=== PATIENT | female | born 1980 | race Caucasian/White ===

== ENCOUNTER 2019-12-07 18:44 | Emergency (ER) | payer OTHER, SELFPAY ==
--- NOTE | 2019-12-07 19:02 | ED.ABDPAIN ---
HPI - Abdominal Pain General Chief Complaint: Abdominal Pain Stated Complaint: trouble having a bowel movement Time Seen by Provider: 12/07/19 19:02 Source: patient and RN notes reviewed Mode of arrival: ambulatory Limitations: no limitations History of Present Illness HPI narrative: Nurse reports that she went in to talk to the patient. Patient has been on methadone and reports constipation. When she was told the doctor would have to check her and examine her she decided that she would try enemas [id number] and left without me seeing her or speaking with her. I was not able to get any review of systems or past medical history other than what was reported by the nurse. MD elicited complaint: other (Constipation) Pertinent past history: constipation Related Data Allergies Allergy/AdvReac Type Severity Reaction Status Date / Time aspirin Allergy Intermediate hives Verified 01/29/13 17:45 ibuprofen Allergy Intermediate dyspnea Verified 01/29/13 17:45 Penicillins Allergy Intermediate angioedema Verified 01/29/13 17:44 lactose Allergy Unknown INTOL. Verified 11/15/15 22:39 [facility] Past Medical History Medical History (Updated 12/07/19 @ 19:21 by Jason Willis MD) Nasal bone fracture No significant past medical history Surgical History Surgical History (Updated 08/13/19 @ 18:36 by Saurabh Zavala MD) History of dilatation and curettage Family History Family History (Updated 08/13/19 @ 18:36 by Saurabh Zavala MD) Father No problems noted. Social History Social History (Updated 08/13/19 @ 18:37 by Saurabh Zavala MD) Additional smoking assessment comments: smokes 1 pack per day for past 15 years Substance use: never Discharge Plan Discharge Clinical Impression: Constipation Qualifiers: Constipation type: drug induced constipation Qualified Code(s): K59.03 - Drug induced constipation Patient Disposition: Left Without Being Seen Prescriptions: No Action azithromycin 250 mg tablet 250 mg PO DAILY 5 Days Qty: 5 RF: 0 Follow-up/Referrals: UNKNOWN,DOCTOR [Primary Care Provider] - Time of Disposition: :
[2019-12-07 19:25] VITALS: BP 153/83; PULSE 95; RESP 18; TEMP 37.1; O2SAT 96
== END 2019-12-07 19:30 | disposition left against medical advice (07) ==
PROVIDERS: Emergency Provider Emergency Medicine
DX: Z53.8 Procedure and treatment not carried out for other reasons (principal)
CPT/HCPCS: 99199

== ENCOUNTER 2020-02-07 19:14 | Emergency (ER) | payer OTHER, SELFPAY ==
[2020-02-07 19:14] VITALS: BP 140/76; PULSE 95; RESP 14; TEMP 36.9; O2SAT 97
--- NOTE | 2020-02-07 19:40 | ED.WOUNDLAC ---
HPI - Wound/Laceration General Chief Complaint: Wound/Laceration Stated Complaint: foot pain Source: patient Mode of arrival: ambulatory Limitations: no limitations History of Present Illness HPI narrative: this is a 39-year-old female that presents with some superficial abrasions to her left foot and to her 2nd distal toe after she bumped into a glass door causing abrasions, patient has good range of motion although it is mildly tender and painful has good pedal pulse, with some mild bruising and will abrasions to her left foot. Onset (ago): hour(s) Extremity Location: Left: ankle ( superficial abrasions) Place: outdoors Patient tetanus UTD: No Context: accidental Associated symptoms: none Treatments prior to arrival: bandage Related Data Home Medications Medication Instructions Recorded Confirmed albuterol sulfate 1 inh INHALATION QID PRN 12/07/19 12/07/19 methadone 10 mg PO DAILY 12/07/19 12/07/19 Allergies Allergy/AdvReac Type Severity Reaction Status Date / Time aspirin Allergy Intermediate hives Verified 01/29/13 17:45 ibuprofen Allergy Intermediate dyspnea Verified 01/29/13 17:45 Penicillins Allergy Intermediate angioedema Verified 01/29/13 17:44 lactose Allergy Unknown INTOL. Verified 11/15/15 22:39 Review of Systems Review of Systems: All systems reviewed & are unremarkable except as noted in HPI and below PMFSH Past Medical History Medical History Nasal bone fracture No significant past medical history Surgical History Surgical History History of dilatation and curettage Family History Family History Father No problems noted. Social History Social History Additional smoking assessment comments: smokes 1 pack per day for past 15 years Substance use: never Exam Const: General: no acute distress Orientation/consciousness: patient oriented x3 HENMT: Head: normal to inspection Eyes: Conjunctivae: conjunctivae normal Pupils: Equal, round and reactive pupils present Neck: Neck: normal visual inspection, no lymphadenopathy and no meningeal signs Chest: Chest palpation & inspection: normal inspection of the chest Resp: Effort & Inspection: normal respiratory effort Auscultation: clear to auscultation bilaterally Cardio: Rate: regular rate Rhythm: regular rhythm GI: GI Palp: Yes Soft to palpation Back/Spine/Pelvis: Back: no CVA tenderness Neuro: General: patient oriented x3 and moves all extremities Extrem: Other: Abrasions to her left foot and to the distal end of her 2nd toe on the left foot Course Course Emergency Course: when to assess patient and patient declined a type of x-rays stating that she has had broken bones before and she sure that there is no broken bones, she has superficial abrasions the foot is some soaking, placed Neosporin and update the patient with her tetanus vaccine. Critical Care Time Critical Care Time Critical Care Time: No Discharge Plan Discharge Clinical Impression: Avulsion of skin, Abrasion Patient Disposition: Home, Self-Care Condition: Stable Instructions: Antibiotic Form, Skin Avulsion (ED), Abrasion (ED), Laceration (ED) Additional Instructions: Follow-up with primary care physician if symptoms persist or worsen. Can apply Neosporin daily x3 days to affected areas. Prescriptions: No Action methadone 10 mg Tablet 10 mg PO DAILY RF: 0 albuterol sulfate 90 mcg/actuation Hfa Aerosol Inhaler 1 inh INHALATION QID PRN (Reason: Wheezing) RF: 0 Follow-up/Referrals: UNKNOWN,DOCTOR [Primary Care Provider] - Time of Disposition: 19:47
[2020-02-07] MEDS: TETANUS,DIPHTHERIA,AC PERTUSSIS ADULT 0.5 ML (ADACEL) IM (19:42)
[2020-02-07] MEDS: NEOMYCIN/POLYMYXIN/BACITRACIN OINTMENT PACKET 1 PACKET (19:43)
[2020-02-07 19:50] VITALS: RESP 15
== END 2020-02-07 19:51 | disposition home or self-care (01) ==
PROVIDERS: Emergency Provider Emergency Medicine
DX: S91.302A Unspecified open wound, left foot, initial encounter (principal); W22.8XXA Striking against or struck by other objects, initial encounter
CPT/HCPCS: 90471; 90715; 99282

== ENCOUNTER 2021-07-14 11:04 | Outpatient (CLI) | payer OTHER, SELFPAY ==
[2021-07-14 17:36] LABS: SARS-CoV-2 Ag Negative (Negative)
== END 2021-07-14 11:05 | disposition home or self-care (01) ==
PROVIDERS: PCP Family Medicine; Visit Provider Family Medicine
DX: Z20.822 Contact with and (suspected) exposure to COVID-19 (principal)
CPT/HCPCS: 87426; C9803

== ENCOUNTER 2022-05-18 09:47 | Outpatient (CLI) | payer OTHER, SELFPAY ==
--- NOTE | 2022-05-18 11:30 | NEURO_ITS ---
Impression: # Complains of numbness of hands, right more than left. # Moderate right Carpal Tunnel Syndrome. # No ulnar neuropathy. # Needle/EMG exam mildly abnormal. Motor Nerve Conduction Upper Extremities Median Nerve Conduction Velocity (m/sec) Terminal Latency (msec) Response Voltage(mV) Elbow-Wrist Wrist Elbow Wrist Right 58 5.3 5 5 Left 61 3.4 2 4 Ulnar Nerve Conduction Velocity (m/sec) Terminal Latency (msec) Response Voltage(mV) Above Elbow Below Elbow Wrist Above Elbow Below Elbow Wrist Right 60 2.2 9 9 Left 61 2.0 9 10 F-Wave Latency Median (ms) Ulnar (ms) Right 27.7 26.3 Left 26.7 26.0 Sensory Nerve Conduction Upper Extremities Median Nerve Stimulation Terminal Latency (msec) Wrist/Digit Response Voltage (uV) Wrist Right 5.8/4.7 63/69 Left 3.2/3.3 90/69 Ulnar Nerve Stimulation Terminal Latency (msec) Wrist/Digit Response Voltage (uV) Wrist Right 2.4 61 Left 2.3 80 Radial Nerve Terminal Latency (msec) Response Voltage(mV) Right 1.8 47 Left 1.7 25 Left Right Muscles Examined Fibrillation Fasciculation Scarcity Voltage Duration Left Right Left Right Left Right Left Right Left Right Deltoid Biceps X X Brachioradialis Triceps X X Pronator Teres X X Ext Indicis X X Ext Digitorum X X Abd Poll Brev +++ X X 1st Dorsal Interosseus Paraspinals MTDD
== END 2022-05-18 09:48 | disposition home or self-care (01) ==
LOC: ANHNEURO 09:49
PROVIDERS: PCP Family Medicine; Visit Provider Family Medicine
DX: R20.2 Paresthesia of skin (principal); G56.01 Carpal tunnel syndrome, right upper limb
CPT/HCPCS: 95886; 95911

== ENCOUNTER 2022-09-26 16:41 | Emergency (ER) | payer OTHER, SELFPAY ==
[2022-09-26 16:41] VITALS: BP 132/83; PULSE 95; RESP 18; TEMP 36.4; O2SAT 99
--- NOTE | 2022-09-26 17:17 | ED.GENADULT ---
HPI - General Adult General Chief complaint: Recheck/Abnormal Lab/Rx Stated complaint: med refill; out of seroquel Time Seen by Provider: 09/26/22 17:09 Source: patient and RN notes reviewed Mode of arrival: ambulatory Limitations: no limitations History of Present Illness HPI narrative: patient states that she accidentally dumped her medication into the toilet. She takes Seroquel. She said this happened 3 days ago. She says she tried to call the office for refill but they never called her back. She called the pharmacy and they told her to come here. complaint: Medication refill Related Data Home Medications Medication Instructions Recorded Confirmed albuterol sulfate 90 mcg/actuation 1 inh inhalation QID PRN Wheezing 12/07/19 09/26/22 aerosol inhaler methadone 10 mg tablet 10 mg PO DAILY 12/07/19 09/26/22 quetiapine 300 mg tablet 300 mg PO DAILY 09/26/22 09/26/22 Allergies Allergy/AdvReac Type Severity Reaction Status Date / Time aspirin Allergy Intermediate hives Verified 01/29/13 17:45 ibuprofen Allergy Intermediate dyspnea Verified 01/29/13 17:45 Penicillins Allergy Intermediate angioedema Verified 01/29/13 17:44 lactose Allergy Unknown INTOL. Verified 11/15/15 22:39 Review of Systems Review of Systems: All systems reviewed & are unremarkable except as noted in HPI and below PMFSH Past Medical History Medical History (Updated 09/26/22 @ 17:23 by Jason Willis MD) Depression Nasal bone fracture No significant past medical history Surgical History Surgical History History of dilatation and curettage Family History Family History Father No problems noted. Social History Social History Additional smoking assessment comments: smokes 1 pack per day for past 15 years Substance use: never Exam Const: General: healthy appearing, no acute distress and alert Nutritional Appearance: well nourished and obese Orientation/consciousness: patient oriented x3 Limitations: no limitations Other: female tech in the room during examination. HENMT: Head: normal to inspection Ears: external ears normal Face/Nose/Sinus: Normal external nose present Face and sinus: normal facial exam Mouth: Yes moist mucous membranes Eyes: Conjunctivae: conjunctivae normal Pupils: Equal, round and reactive pupils present EOM: EOMs intact bilaterally Neck: Neck: normal visual inspection Resp: Effort & Inspection: normal respiratory effort Auscultation: clear to auscultation bilaterally Cardio: Rate: regular rate Rhythm: regular rhythm Course Course Emergency Course: I explained the patient that I do not do refills of medications from the emergency room. Vital Signs Vital signs: Vital Signs Temperature 36.4 C 09/26/22 16:41 Pulse Rate 95 09/26/22 16:41 Respiratory Rate 18 09/26/22 16:41 Blood Pressure 132/83 09/26/22 16:41 Pulse Oximetry 99 09/26/22 16:41 Oxygen Delivery Room Air 09/26/22 16:41 Temperature 36.4 C 09/26/22 16:41 Pulse Rate 95 09/26/22 16:41 Respiratory Rate 18 09/26/22 16:41 Blood Pressure 132/83 09/26/22 16:41 Pulse Oximetry 99 09/26/22 16:41 Oxygen Delivery Room Air 09/26/22 16:41 Medical Decision Making Differential Diagnosis Differential Diagnosis: Medication refill Vital Signs Vital Signs: Vital Signs Temperature 36.4 C 09/26/22 16:41 Pulse Rate 95 09/26/22 16:41 Respiratory Rate 18 09/26/22 16:41 Blood Pressure 132/83 09/26/22 16:41 Pulse Oximetry 99 09/26/22 16:41 Oxygen Delivery Room Air 09/26/22 16:41 Temperature 36.4 C 09/26/22 16:41 Pulse Rate 95 09/26/22 16:41 Respiratory Rate 18 09/26/22 16:41 Blood Pressure 132/83 09/26/22 16:41 Pulse Oximetry 99 09/26/22 16:41 Oxygen Delivery Room Air 09/26/22 16:4
== END 2022-09-26 17:18 | disposition home or self-care (01) ==
LOC: CHSED 17:57
PROVIDERS: Emergency Provider Emergency Medicine; PCP Family Medicine
DX: Z76.0 Encounter for issue of repeat prescription (principal); F17.210 Nicotine dependence, cigarettes, uncomplicated
CPT/HCPCS: 99281

== ENCOUNTER 2022-10-30 20:35 | Emergency (ER) | payer OTHER, SELFPAY ==
--- NOTE | ~2022-10-30 | XR_ITS ---
EXAMINATION: XR knee LT 3V DATE: 10/30/2022 21:01 INDICATION: Left knee pain post fall TECHNIQUE: Anteroposterior, oblique and crosstable lateral views of the left knee were obtained COMPARISON: None. FINDINGS: Alignment is normal. No fracture. Joint spaces appear normal on nonweightbearing imaging. No joint ef fusion/layering lipohemarthrosis. Mild prepatellar soft tissue swelling.. IMPRESSION: 1. No left knee joint effusion or osseous abnormality. Reviewed, dictated and finalized at location A.
[2022-10-30 20:36] VITALS: BP 142/97; PULSE 99; RESP 20; TEMP 36.8; O2SAT 97
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
[2022-10-30] MEDS: ACETAMINOPHEN 500 MG TABLET 1000 MG PO (20:57)
== END 2022-10-30 21:18 | disposition home or self-care (01) ==
PROVIDERS: Emergency Provider Emergency Medicine; PCP Family Medicine
DX: S80.02XA Contusion of left knee, initial encounter (principal); S61.215A Laceration without foreign body of left ring finger without damage to nail, initial encounter; F17.210 Nicotine dependence, cigarettes, uncomplicated; W22.8XXA Striking against or struck by other objects, initial encounter; W25.XXXA Contact with sharp glass, initial encounter
CPT/HCPCS: 73562; 99283

== ENCOUNTER 2023-10-01 17:27 | Emergency (ER) | payer OTHER, SELFPAY ==
[2023-10-01 17:28] VITALS: BP 137/84; PULSE 94; RESP 20; TEMP 36.8; O2SAT 99
--- NOTE | 2023-10-01 17:44 | ED.WOUNDLAC ---
HPI - Wound/Laceration General Chief Complaint: Wound/Laceration Stated Complaint: RIGHT INDEX FINGER LACERATION Source: patient Mode of arrival: ambulatory Limitations: no limitations History of Present Illness HPI narrative: this is a 43-year-old female who presents after she reached into trash basket and cut her left index finger on a razor it is a flap laceration currently well-approximated not bleeding up-to-date with her tetanus there is no numbness or tingling in her finger hand she has good range of motion. Onset (ago): hour(s) Extremity Location: Left: hand ( index finger with flap laceration) Place: home Patient tetanus UTD: Yes Context: accidental Associated symptoms: none Related Data Home Medications Medication Instructions Recorded Confirmed albuterol sulfate 90 mcg/actuation 1 inh inhalation QID PRN Wheezing 12/07/19 10/01/23 aerosol inhaler methadone 73 mg PO DAILY 10/30/22 10/01/23 quetiapine 400 mg tablet 400 mg PO DAILY 10/30/22 10/01/23 Allergies Allergy/AdvReac Type Severity Reaction Status Date / Time aspirin Allergy Intermediate hives Verified 10/01/23 17:30 ibuprofen Allergy Intermediate dyspnea Verified 10/01/23 17:30 Penicillins Allergy Intermediate angioedema Verified 10/01/23 17:30 lactose Allergy Unknown INTOL. Verified 10/01/23 17:30 Review of Systems Review of Systems: All systems reviewed & are unremarkable except as noted in HPI and below PMFSH Past Medical History Medical History Depression Nasal bone fracture No significant past medical history Surgical History Surgical History History of dilatation and curettage Family History Family History Father No problems noted. Social History Social History Additional smoking assessment comments: smokes 1 pack per day for past 15 years Substance use: never Exam Const: General: healthy appearing and no acute distress Nutritional Appearance: well nourished Orientation/consciousness: patient oriented x3 Eyes: Conjunctivae: conjunctivae normal Neck: Neck: normal visual inspection Chest: Chest palpation & inspection: normal inspection of the chest Resp: Effort & Inspection: normal respiratory effort Cardio: Rate: regular rate Rhythm: regular rhythm GI: GI Palp: Yes Soft to palpation Auscultation: normal bowel sounds Skin: Wounds: wounds noted Other: Flap laceration left index finger Neuro: General: moves all extremities Course Course Emergency Course: Dermabond applied to left index finger the area is well approximated up-to-date with her tetanus patient tolerated procedure well. Vital Signs Vital signs: Vital Signs Temperature 36.8 C 10/01/23 17:28 Pulse Rate 94 10/01/23 17:28 Respiratory Rate 20 10/01/23 17:28 Blood Pressure 137/84 10/01/23 17:28 Pulse Oximetry 99 10/01/23 17:28 Oxygen Delivery Room Air 10/01/23 17:28 Temperature 36.8 C 10/01/23 17:28 Pulse Rate 94 10/01/23 17:28 Respiratory Rate 20 10/01/23 17:28 Blood Pressure 137/84 10/01/23 17:28 Pulse Oximetry 99 10/01/23 17:28 Oxygen Delivery Room Air 10/01/23 17:28 Procedures Laceration Laceration 1: Date: 10/01/23 Time: 17:47 Site: hand Side (If applicable): left Size (cm): 2 Description: flap Depth: simple, single layer Pre-repair: wound explored, irrigated and irrigated extensively ====== Skin Level ====== Skin layer closed with: dermabond ====== Subcutaneous Layer ====== ====== Muscle Layer ====== ====== Tendon Layer ====== Critical Care Time Critical Care Time Critical Care Time: No Discharge Plan Discharge Clinical Impression: Laceration Patient
[2023-10-01 18:00] VITALS: BP 137/84; PULSE 94; RESP 20; TEMP 36.8; O2SAT 99
== END 2023-10-01 18:00 | disposition home or self-care (01) ==
PROVIDERS: Emergency Provider Emergency Medicine
DX: S61.210A Laceration without foreign body of right index finger without damage to nail, initial encounter (principal); F17.210 Nicotine dependence, cigarettes, uncomplicated; Z79.899 Other long term (current) drug therapy; W26.8XXA Contact with other sharp object(s), not elsewhere classified, initial encounter; Y92.009 Unspecified place in unspecified non-institutional (private) residence as the place of occurrence of the external cause
CPT/HCPCS: 12001; 99282

== ENCOUNTER 2024-11-26 21:29 | Emergency (ER) | payer OTHER, SELFPAY ==
[2024-11-26 21:29] VITALS: BP 153/85; PULSE 112; RESP 18; TEMP 36.2; O2SAT 100
--- OUTSIDE RECORDS SUMMARY | 2024-11-26 21:30 | XMS_ITS | Referral Summary ---
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 Operator Multiple Spindle Name Role Phone Yovana Muñoz NP Primary Care Provider [phone] Allergies Active Allergy Reactions Criticality Noted Date Comments Aspirin Swelling Medium 04/29/2023 Penicillins Swelling Medium 04/29/2023 Medications No known medications Active Problems No known active problems Social History Tobacco Use Types Packs/Day Years Used Date Smoking Tobacco: Every Day Cigarettes 0.3 25 Smokeless Tobacco: Never Tobacco Cessation:Ready to Q uit: Not Asked; Counseling Given: Not Answered Alcohol Use Standard Drinks/Week Comments Not Currently 0 (1 standard drink = 0.6 oz pur e alcohol) Personal Safety Answer Date Recorded Have you ever been in or are you currently in a harmful physical or emotional relationship or is someone making you feel afraid or unsafe? 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 Gender Identity Not on file Sexual Orientation Not on file Last Filed Vital Signs Vital Sign Reading Time Taken Comments Blood Pressure 106/62 03/28/2024 9:40 PM CDT Pulse 82 03/28/2024 9:40 PM CDT Temperature 37.1 C (98.7 F) 03/28/2024 8:23 PM CDT Respiratory Rate 18 03/28/2024 8:23 PM CDT Oxygen Saturation 98% 03/28/2024 9:40 PM CDT Inhaled Oxygen Concentration - - Weight 63.5 kg (139 lb 15.9 oz) 03/28/2024 8:23 PM CDT Height 162.6 cm (5' 4.02 ) 03/28/2024 8:23 PM CD T Body Mass Index 24.02 03/28/2024 8:23 PM CDT Plan of Treatment Not on file Insurance [facility] Care Teams Bar Machine Operator Multiple Spindle Relationship Specialty Start Date End Date Yovana Muñoz [employer] [address] [place] [address] PCP - General Nurse Practitioner 04/17/23
--- OUTSIDE RECORDS SUMMARY | 2024-11-26 21:30 | XMS_ITS | Clinical Summary ---
Author Organization [facility] Address [address] [place] [id number] Care Team Providers Care Paralegal Assistant Name Role Phone Aleyda Kramer COUNTER STACKER Primary Care Provider [phone] Allergies Active Allergy Reactions Criticality Noted Date Comments Aspirin Hives 11/11/2022 Ibuprofen Shortness of Breath High 11/11/2022 Penicillins Swelling 11/11/2022 Medications albuterol sulfate HFA 108 (90 Base) MCG/ACT inhaler Inhale 2 puffs into the lungs every 4 (four) hours as needed. 04/01/2022 Active buPROPion SR (WELLBUTRIN SR) 150 MG 12 hr tablet Take 1 tablet (150 mg total) by mouth 2 (two) times daily. 01/31/2022 Active polyethylene glycol (GLYCOLAX) 17 GM/SCOOP powder Take 17 g by mouth daily. 06/15/2022 Active pravastatin (PRAVACHOL) 40 MG tablet Take 1 tablet (40 mg total) by mouth nightly at bedtime. 10/27/2022 Active QUEtiapine (SEROQUEL) 200 MG tablet Take 2 tablets (400 mg total) by mouth nightly at bedtime. 02/03/2022 Active methadone (DOLOPHINE) 5 MG tablet Take 73 mg by mouth daily. Active clonazePAM (KLONOPIN) 1 MG tablet Take 1 tablet (1 mg total) by mouth 2 (two) times daily as needed for Anxiety. Active ondansetron (ZOFRAN) 4 MG tablet Take 1 tablet (4 mg total) by mouth every 8 (eight) hours as needed for Nausea. 20 tablet 11/04/2023 Active Active Problems Problem Noted Date Diagnosed Date Pyelonephritis 11/04/2023 Contusion of knee and lower leg, left, initial e ncounter 11/11/2022 Social History Tobacco Use Types Packs/Day Years Used Date Smoking Tobacco: Every Day Cigarettes 1 30 Smokeless Tobacco: Never Tobacco Cessation:Ready to Q uit: Not Asked; Counseling Given: Not Answered Alcohol Use Standard Drinks/Week Comments Not Currently 0 (1 standard drink = 0.6 oz pur e alcohol) [facility] Utilities Answer Date Recorded In the past 12 months has th e [employer], gas, oil, or water company threatened to shut off services in your home? Yes 11/04/2023 Humiliation, Afraid, Rape, and Kick questionnair e Answer Date Recorded Within the last year, have y ou been afraid of your partner or ex-partner? No 11/04/2023 Within the last year, have y ou been humiliated or emotionally abused in other ways by your partner or ex-partner? No Within the last year, have y ou been kicked, hit, slapped, or otherwise physically hurt by your partner or ex-partner? No 11/04/2023 Within the last year, have y ou been raped or forced to have any kind of sexual activity by your partner or ex-partner? No 11/04/2023 Overall Financial Resource Strain (CARDIA) Answe r Date Recorded How hard is it for you to pa y for the very basics like food, housing, medical care, and heating? Very hard 11/04/2023 Hunger Vital Sign Answer Date Recorded Within the past 12 months, y ou worried that your food would run out before you got the money to buy more. Often true 11/04/19 24 Within the past 12 months, t he food you bought just didn't last and you didn't have money to get more. Often true 11/04/2023 PRAPARE - Transportation Answer Date Re corded In the past 12 months, has l ack of transportation kept you from medical appointments or from getting medications? Yes 10/16 In the past 12 months, has l ack of transportation kept you from meetings, work, or from getting things needed for daily living? Yes 11/04/2023 Housing Stability Vital Sign Answer Alen e Recorded In the last 12 months, was t here a time when you were not able to pay the mortgage or rent on time? Yes 11/04/2023 In the past 12 months, how m any times have you moved where you were living? 3 11/04/2023 At any time in the past 12 m [facility], were you homeless or living in a half-way (including now)? Yes 11/04/2023 Comments No Sex and Gender Information Value Date Recorded Sex Assigned at Not on file Legal Sex Female 4:40 PM CDT Gender Identity Not on file Sexual Orientation Not on file Last Filed Vital Signs Vital Sign Reading Time Taken Comments Blood Pressure 135/81 11/08/2023 3:36 AM CDT Pulse 93 11/08/2023 3:36 AM CDT Temperature 36.3 C (97.4 F) 11/08/2023 3:36 AM CDT Respiratory Rate 12 11/08/2023 3:36 AM CDT Oxygen Saturation 100% 11/08/2023 3:36 AM CDT Inhaled Oxygen Concentration - - Weight 77.1 kg (170 lb) 11/08/2023 3:36 AM CDT Height 162.6 cm (5' 4 ) 11/08/2023 3:36 AM CDT Body Mass Index 29.18 11/08/2023 3:36 AM CDT Plan of Treatment Health Maintenance Due Date Last Done Comments Cervical Cancer Screening Pa p Smear (Age 30 to 64) Every 3 Years 1982 Annual Physical 1985 Hepatitis C 2000 Hepatitis B Vaccines (1 of 3 - 19+ 3-dose series) 2001 Pneumococcal Vaccine: Pediat rics (0 to 5 Years) and At-Risk Patients (6 to 49 Years) (1 of 2 - PCV) 2001 Cervical Cancer Screening Pa p with HPV Testing (Age 30 to 64) Every 5 Years 2012 Cervical Cancer Screening with HPV 2012 Mammogram Screening 2022 COVID-19 Vaccine ( - 2023-2 5 season) 2024 DTaP, Tdap and Td Vaccines ( 2 - Td or Tdap) 02/06/2030 02/07/2020 HPV Vaccines Aged Out No longer eligi ble based on patient's age to complete this topic Meningococcal B Vaccine Aged Out No l onger eligible based on patient's age to complete this topic Meningococcal Vaccine Aged Out No nuria jagdeep eligible based on patient's age to complete this topic RSV Immunizations Under 20 Months Aged Out No longer eligible based on patient's age to complete this topic Insurance [employer] Advance Directives Documents on File Type Date Recorded 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
--- OUTSIDE RECORDS SUMMARY | 2024-11-26 21:30 | XMS_ITS | Clinical Summary ---
Author Organization [facility] Address [address] [place] [address] Care Team Providers Care Blasting Helper Name Role Phone Yovana Muñoz NP Primary Care Provider [phone] Allergies Active Allergy Reactions Criticality Noted Date [...] on file Legal Sex Female 7:56 PM SENIOR DIRECTOR CREATIVE SERVICES Gender Identity Not on file Sexual Orientation Not on file Obstetrics History Last Filed Vital Signs Vital Sign Reading [...] 03/28/2024 8:23 PM CDT Plan of Treatment Health Maintenance Due Date Last Done Comments Breast Cancer Screening-Mammogram 1982 Cervical Cancer Screening 1982 Depression Screening 1982 Hepatitis C Screening 1982 Varicella Vaccines (1 of 2 - 13+ 2-dose series) 1995 Hepatitis B Screening 2000 Regular Well Visit/Exam 18-64 2000 Pneumococcal vaccine <65 (1 of 2 - PCV) 2001 Influenza Vaccine (#1) 2024 DTaP/Tdap/Td Vaccine (2 - Td or Tdap) 02/06/2030 02/07/2020 HPV Vaccines Aged Out No longer eligi ble based on patient's age to complete this topic Insurance [facility] Care Teams Blasting Helper Relationship Specialty Start Date End Date Yovana Muñoz, DIRECTOR OF LEARNING [address] [place] [address] PCP - General Nurse Practitioner 04/17/23
--- NOTE | 2024-11-26 21:35 | ED.DENTAL ---
HPI - Dental/Oral General Chief complaint: Dental/Oral Stated complaint: tooth pain Time Seen by Provider: 11/26/24 21:34 Source: patient Mode of arrival: ambulatory Limitations: no limitations History of Present Illness HPI Narrative: Patient is a 44-year-old female with right lower mandible pain at her molar teeth with most of them gone and the residual tooth number 29 having most of the pain. Patient did not want pain medicine as she is on Suboxone. She did not want a shot of Toradol. patient specifically wanted antibiotics. MD Complaint: tooth pain and tooth injury Location: Tooth # ( Twenty-nine) Onset (ago): day(s) ( 3) Duration: constant Severity: moderate Severity scale (1-10): 5 Relieving factors: nothing Exacerbating factors: chewing, cold, heat and drinking fluids Context: history of dental caries, trauma (mechanism) and poor dental care Associated symptoms: gum swelling Treatment prior to arrival: topical analgesic and oral analgesic Related Data Home Medications ?Medication ?Instructions ?Recorded ?Confirmed ?Last Taken ?Type albuterol sulfate 90 mcg/actuation 1 inh inhalation QID PRN Wheezing 12/07/19 10/01/23 Unknown History aerosol inhaler methadone 73 mg PO DAILY 10/30/22 10/01/23 11/26/24 History quetiapine 400 mg tablet 400 mg PO DAILY 10/30/22 10/01/23 Unknown History Allergies Allergy/AdvReac Type Severity Reaction Status Date / Time aspirin Allergy Intermediate hives Verified 11/26/24 22:03 ibuprofen Allergy Intermediate dyspnea Verified 11/26/24 22:03 Penicillins Allergy Intermediate angioedema Verified 11/26/24 22:03 lactose Allergy Unknown INTOL. Verified 11/26/24 22:03 Review of Systems Review of Systems: All systems reviewed & are unremarkable except as noted in HPI and below Constitutional: Constitutional: Reports no additional constitutional complaints Eyes: Eyes: Reports no additional eye complaints ENT: Reports system reviewed and no additional complaints, except as documented Cardiovascular: Cardiovascular: Reports no additional cardiovascular complaints Respiratory: Respiratory: Reports no additional respiratory complaints Gastrointestinal: Gastrointestinal: Reports no additional gastrointestinal complaints Genitourinary: Genitourinary: Reports no additional female genitourinary complaints Musculoskeletal: Musculoskeletal: Reports no additional musculoskeletal complaints Integumentary/Breasts: Skin/Breast: Reports system reviewed and no additional complaints, except as docu Neurologic: Reports system reviewed and no additional complaints, except as documented Psychiatric: Psychiatric: Reports no additional psychiatric complaints Endocrine: Endocrine: Reports no additional endocrine complaints Hematologic/Lymphatic: Hematologic/Lymphatic: Reports no additional hematologic/lymphatic complaints Allergic/Immunologic: Allergic/Immunologic: Reports no additional allergic/immunologic complaints PMFSH Past Medical History Medical History Depression Nasal bone fracture No significant past medical history Surgical History Surgical History History of dilatation and curettage Family History Family History Father No problems noted. Social History Social History Additional smoking assessment comments: smokes 1 pack per day for past 15 years Substance use: never Exam Const: General: healthy appearing Nutritional Appearance: well nourished Orientation/consciousness: patient oriented x3 HENMT: Head: normal to inspection Ears: external ears normal Face/Nose/Sinus: Normal external nose present Other: Poor dentition and many cavity seen with tooth number 29 having fracture and decay; no definite abscess formation Eyes: Conjunctivae: conjunctivae normal Pupils: Equal, round and reactive pupils present EOM: EOMs intact bilaterally Neck: Neck: normal visual inspection Chest: Chest palpation & inspection: normal inspection of the chest Resp: Effort & Inspection: normal respiratory effort and not labored Auscultation: clear to auscultation bilaterally and no crackles Cardio: Rate: regular rate Rhythm: regular rhythm Heart sounds: no murmurs GI: Inspection: non-distended GI Palp: Yes Soft to palpation and No Tenderness to palpation present (GI) Auscultation: normal bowel sounds : General: Yes bladder normal to palpation Back/Spine/Pelvis: Back: no CVA tenderness Skin: General skin exam: normal color Rashes: no rashes Wounds: no wounds Neuro: General: patient oriented x3 Cranial nerves: Yes Nystagmus not present Speech: normal speech Extrem: General: normal to inspection Psych: Mental Status: mental status grossly normal Affect: normal affect Attitude: cooperative Course Vital Signs Vital signs: Vital Signs Temperature 36.2 C L 11/26/24 21:29 Pulse Rate 112 H 11/26/24 21:29 Respiratory Rate 18 11/26/24 21:29 Blood Pressure 153/85 H 11/26/24 21:29 Pulse Oximetry 100 11/26/24 21:29 Oxygen Delivery Room Air 11/26/24 21:29 Temperature 36.2 C L 11/26/24 21:29 Pulse Rate 112 H 11/26/24 21:29 Respiratory Rate 18 11/26/24 21:29 Blood Pressure 153/85 H 11/26/24 21:29 Pulse Oximetry 100 11/26/24 21:29 Oxygen Delivery Room Air 11/26/24 21:29 MDM - Dental/Oral MDM Narrative Medical decision making narrative: patient is a 44-year-old female with mandible/dental pain this evening. She has an appointment with a dentist. She wants antibiotics. Discharge Plan Discharge Clinical Impression: Mandible pain Patient Disposition: Home Condition: Stable Instructions: Antibiotic Form, Toothache (ED) Patient Language: Lithuanian Prescriptions: New clindamycin HCl [Cleocin HCl] 300 mg capsule 300 mg PO TID 10 Days Qty: 30 0RF No Action albuterol sulfate 90 mcg/actuation Hfa Aerosol Inhaler 1 inh INHALATION QID PRN (Reason: Wheezing) quetiapine 400 mg tablet 400 mg PO DAILY methadone 73 mg 73 mg PO DAILY Follow-up/Referrals: Danay Moeller MD [Primary Care Provider] - Time of Disposition: 22:10
--- NOTE | 2024-11-26 21:47 | PC.NURSE ---
patient ambulatory outside, states she wanted to go get her oralgel.
[2024-11-26] MEDS: CLINDAMYCIN HCL 150 MG CAP 300 MG PO (22:24)
--- NOTE | 2024-11-26 22:25 | PC.NURSE ---
patient medicated per order, see MAR.
== END 2024-11-26 22:38 | disposition home or self-care (01) ==
PROVIDERS: Emergency Provider Emergency Medicine; PCP Internal Medicine
DX: R68.84 Jaw pain (principal); F17.210 Nicotine dependence, cigarettes, uncomplicated
CPT/HCPCS: 99283

== ENCOUNTER 2025-07-05 18:35 | Emergency (ER) | payer OTHER, SELFPAY ==
[2025-07-05 18:35] VITALS: BP 144/96; PULSE 96; RESP 20; TEMP 36.7; O2SAT 100
--- NOTE | 2025-07-05 18:51 | ED.GENADULT ---
HPI - General Adult General Chief complaint: Dental/Oral Stated complaint: Swollen Mouth Time Seen by Provider: 07/05/25 18:46 History of Present Illness HPI narrative: Samantha presented to the ED with a couple days of worsening upper left molar pain and purulent drainage. No fevers, dyspnea or dysphagia. Related Data Home Medications ?Medication ?Instructions ?Recorded ?Confirmed ?Last Taken ?Type albuterol sulfate 90 mcg/actuation 1 inh inhalation QID PRN Wheezing 12/07/19 10/01/23 Unknown History aerosol inhaler buprenorphine 8 mg-naloxone 2 mg 1 film sublingual BID 07/05/25 Unknown History sublingual film Allergies Allergy/AdvReac Type Severity Reaction Status Date / Time aspirin Allergy Intermediate hives Verified 07/05/25 18:51 ibuprofen Allergy Intermediate dyspnea Verified 07/05/25 18:51 Penicillins Allergy Intermediate angioedema Verified 07/05/25 18:51 lactose Allergy Unknown INTOL. Verified 07/05/25 18:51 Review of Systems Review of Systems: All systems reviewed & are unremarkable except as noted in HPI and below Constitutional: Constitutional: Reports as per [facility] Past Medical History Medical History Depression Nasal bone fracture No significant past medical history Surgical History Surgical History History of dilatation and curettage Family History Family History Father No problems noted. Social History Social History Additional smoking assessment comments: smokes 1 pack per day for past 15 years Substance use: never Exam Const: General: cooperative, healthy appearing, comfortable, no acute distress, well developed, alert, awake and Physically active Orientation/consciousness: oriented to person, oriented to place and oriented to time HENMT: Head: normal to inspection, normocephalic and atraumatic Ears: hearing grossly normal bilaterally and external ears normal Face/Nose/Sinus: Normal external nose present Other: Poor dentition Pain in the upper left molar as well as erythema and drainage. Eyes: General: appearance normal, both eyes and all related structures Periorbital: periorbital findings normal Sclera: sclerae normal Pupils: Equal, round and reactive pupils present Neck: Neck: normal visual inspection Chest: Chest palpation & inspection: normal inspection of the chest Resp: Effort & Inspection: normal respiratory effort, able to speak in complete sentences and no respiratory distress Cardio: Jugular venous distension: no JVD Skin: General skin exam: normal color and no rashes or lesions noted Neuro: General: oriented to person, oriented to place and oriented to time Cranial nerves: Yes Equal, round and reactive pupils present Extrem: General: normal to inspection Course Vital Signs Vital signs: Vital Signs Temperature 98.0 F 07/05/25 18:35 Pulse Rate 96 07/05/25 18:35 Respiratory Rate 20 07/05/25 18:35 Blood Pressure 144/96 H 07/05/25 18:35 Pulse Oximetry 100 07/05/25 18:35 Oxygen Delivery Room Air 07/05/25 18:35 Temperature 98.0 F 07/05/25 18:35 Pulse Rate 96 07/05/25 18:35 Respiratory Rate 20 07/05/25 18:35 Blood Pressure 144/96 H 07/05/25 18:35 Pulse Oximetry 100 07/05/25 18:35 Oxygen Delivery Room Air 07/05/25 18:35 MDM Differential Diagnosis Differential Diagnosis: ddx includes dental infection vs dental trauma vs other Discharge Plan Discharge Clinical Impression: Dental infection Patient Disposition: Home Condition: Stable Instructions: Antibiotic Form Patient Language: Korean Prescriptions: New clindamycin HCl [Cleocin HCl] 300 mg capsule 300 mg PO Q6H Qty: 20 0RF No Action albuterol sulfate 90 mcg/actuation Hfa Aerosol Inhaler 1 inh INHALATION QID PRN (Reason: Wheezing) buprenorphine-naloxone 8-2 mg film 1 film sublingual BID Follow-up/Referrals: Pavan Nj MD [Physician, Internal Medicine] Stand Alone Forms: Work/School Release IP
[2025-07-05] MEDS: CLINDAMYCIN HCL 150 MG CAP 450 MG PO (18:57)
--- OUTSIDE RECORDS SUMMARY | 2025-07-05 18:58 | XMS_ITS | Clinical Summary ---
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 Gender Identity Not on file Sexual Orientation [...] 8:23 PM CDT Height 162.6 cm (5' 4.02) 03/28/2024 8:23 PM CD T Body Mass Index 24.02 03/28/2024 8:23 PM CDT Plan of Treatment Health Maintenance Due Date Last Done Comments Breast Cancer Screening-Mammogram 1982 Cervical Cancer Screening 1982 Depression Screening 1982 Hepatitis C Screening 1982 Varicella Vaccines (1 of 2 - 13+ 2-dose series) 1994 Hepatitis B Screening 2000 Regular Well Visit/Exam 18-64 2000 Pneumococcal vaccine <65 (1 of 2 - PCV) 2001 HPV Vaccines (1 - 3-dose SCDM series) 2009 Influenza Vaccine (#1) 2025 DTaP/Tdap/Td Vaccine (2 - Td or Tdap) 02/06/2030 [place] [id number] [facility] [address] Care Teams Data Integrity Analyst Relationship Specialty Start Date End Date Yovana Muñoz, SUPERVISOR MIXING [address] [place] [address] PCP - General Nurse Practitioner 04/17/23
== END 2025-07-05 19:05 | disposition home or self-care (01) ==
PROVIDERS: Emergency Provider Family Medicine; Referring Provider Internal Medicine
DX: K04.7 Periapical abscess without sinus (principal); F17.210 Nicotine dependence, cigarettes, uncomplicated
CPT/HCPCS: 99283

== ENCOUNTER 2025-07-09 22:16 | Emergency (ER) | payer OTHER, SELFPAY ==
--- NOTE | ~2025-07-09 | XR_ITS ---
XR hand LT min 3V 07/09/2025 22:40 INDICATION: Left hand caught in car door PROCEDURE: 3 views left hand COMPARISON: No prior studies for comparison. FINDINGS: Fracture, dislocation or subluxation is not identified. The soft tissues appear within normal limits. No foreign bodies are identified. IMPRESSION: 1: NO ACUTE BONE OR JOINT ABNORMALITY IDENTIFIED. Reviewed, dictated and finalized at location [facility]
[2025-07-09 22:16] VITALS: BP 140/95; PULSE 108; RESP 20; TEMP 36.2; O2SAT 98
[2025-07-09] MEDS: ACETAMINOPHEN 500 MG TABLET 1000 MG PO (22:30)
--- NOTE | 2025-07-09 22:30 | ED.UPPEXIN ---
HPI - Extremity Injury (Upper) General Chief Complaint: Extremity Injury, Lower Stated Complaint: left hand injury Time Seen by Provider: 07/09/25 22:18 Source: patient Mode of arrival: ambulatory Limitations: no limitations History of Present Illness HPI narrative: patient is a 45-year-old female with a left hand injury by closing it in a door accidentally from her truck 3 days ago. She has residual left hand pain around the thumb and the base of the thumb. No other injuries. MD complaint: injury to: left and hand Onset (ago): day(s) ( Three) Other injuries: none Place: home and outdoors Severity: moderate Severity scale (1-10): 5 Relieving factors: immobilization Exacerbating factors: movement of extremity and other ( palpation) Context: crush ( car door closure accidentally) Associated symptoms: denies other symptoms Treatments prior to arrival: cold therapy Related Data Home Medications ?Medication ?Instructions ?Recorded ?Confirmed ?Last Taken ?Type albuterol sulfate 90 mcg/actuation 1 inh inhalation QID PRN Wheezing 12/07/19 10/01/23 Unknown History aerosol inhaler buprenorphine 8 mg-naloxone 2 mg 1 film sublingual BID 07/05/25 Unknown History sublingual film Allergies Allergy/AdvReac Type Severity Reaction Status Date / Time aspirin Allergy Severe Anaphylaxis Verified 07/09/25 22:23 ibuprofen Allergy Intermediate dyspnea Verified 07/09/25 22:23 Penicillins Allergy Intermediate angioedema Verified 07/09/25 22:23 lactose Allergy Unknown INTOL. Verified 07/09/25 22:23 Review of Systems Review of Systems: All systems reviewed & are unremarkable except as noted in HPI and below Constitutional: Constitutional: Reports no additional constitutional complaints Eyes: Eyes: Reports no additional eye complaints ENT: Reports system reviewed and no additional complaints, except as documented Cardiovascular: Cardiovascular: Reports no additional cardiovascular complaints Respiratory: Respiratory: Reports no additional respiratory complaints Gastrointestinal: Gastrointestinal: Reports no additional gastrointestinal complaints Genitourinary: Genitourinary: Reports no additional female genitourinary complaints Musculoskeletal: Musculoskeletal: Reports no additional musculoskeletal complaints Integumentary/Breasts: Skin/Breast: Reports system reviewed and no additional complaints, except as docu Neurologic: Reports system reviewed and no additional complaints, except as documented Psychiatric: Psychiatric: Reports no additional psychiatric complaints Endocrine: Endocrine: Reports no additional endocrine complaints Hematologic/Lymphatic: Hematologic/Lymphatic: Reports no additional hematologic/lymphatic complaints Allergic/Immunologic: Allergic/Immunologic: Reports no additional allergic/immunologic complaints PMFSH Past Medical History Medical History Depression Nasal bone fracture No significant past medical history Surgical History Surgical History History of dilatation and curettage Family History Family History Father No problems noted. Social History Social History Additional smoking assessment comments: smokes 1 pack per day for past 15 years Substance use: never Exam Const: General: healthy appearing Nutritional Appearance: well nourished Orientation/consciousness: patient oriented x3 HENMT: Head: normal to inspection Ears: external ears normal Face/Nose/Sinus: Normal external nose present Eyes: Conjunctivae: conjunctivae normal Pupils: Equal, round and reactive pupils present EOM: EOMs intact bilaterally Neck: Neck: normal visual inspection Chest: Chest palpation & inspection: normal inspection of the chest Resp: Effort & Inspection: normal respiratory effort and not labored Auscultation: clear to auscultation bilaterally and no crackles Cardio: Rate: regular rate Rhythm: regular rhythm Heart sounds: no murmurs GI: Inspection: non-distended GI Palp: Yes Soft to palpation and No Tenderness to palpation present (GI) Auscultation: normal bowel sounds : General: Yes bladder normal to palpation Back/Spine/Pelvis: Back: no CVA tenderness Skin: General skin exam: No normal color Rashes: no rashes Wounds: no wounds Other: left hand ecchymosis Neuro: General: patient oriented x3, moves all extremities and no meningeal signs Extrem: General: abnormal to inspection, no clubbing, cyanosis or edema and no pedal edema Other: left hand has ecchymosis and swelling of the thumb and base of the thumb with tenderness to palpation Psych: Mental Status: mental status grossly normal Affect: normal affect Attitude: cooperative Course Vital Signs Vital signs: Vital Signs Temperature 36.2 C L 07/09/25 22:16 Pulse Rate 108 H 07/09/25 22:16 Respiratory Rate 20 07/09/25 22:16 Blood Pressure 140/95 H 07/09/25 22:16 Pulse Oximetry 98 07/09/25 22:16 Oxygen Delivery Room Air 07/09/25 22:16 Temperature 36.2 C L 07/09/25 22:16 Pulse Rate 108 H 07/09/25 22:16 Respiratory Rate 20 07/09/25 22:16 Blood Pressure 140/95 H 07/09/25 22:16 Pulse Oximetry 98 07/09/25 22:16 Oxygen Delivery Room Air 07/09/25 22:16 [facility] MDM Narrative Medical decision making narrative: patient is a 45-year-old female with a left hand injury 3 days ago. X-ray. Tylenol. Vasquez wrap. Differential Diagnosis Differential Diagnosis: Left hand fracture, left hand sprain Imaging Data Attestation: I personally reviewed and interpreted this imaging study as follows: Radiologist's impression: ITS Impressions Hand X-Ray 07/09/25 22:42 IMPRESSION: 1: NO ACUTE BONE OR JOINT ABNORMALITY IDENTIFIED. Discharge Plan Discharge Clinical Impression: Hand sprain Qualifiers: Encounter type: initial encounter Laterality: left Qualified Code(s): S63.92XA - Sprain of unspecified part of left wrist and hand, initial encounter Patient Disposition: Home Condition: Stable Instructions: Hand Sprain (ED) Additional Instructions: please follow rest, ice, elevation and Vasquez bandage compression for the next 2 weeks. Tylenol as needed for pain. Patient Language: Nepali Prescriptions: No Action albuterol sulfate 90 mcg/actuation Hfa Aerosol Inhaler 1 inh INHALATION QID PRN (Reason: Wheezing) buprenorphine-naloxone 8-2 mg film 1 film sublingual BID clindamycin HCl [Cleocin HCl] 300 mg capsule 300 mg PO Q6H Qty: 20 0RF Follow-up/Referrals: Pavan Nj MD [Physician, Internal Medicine] Time of Disposition: 23:05
== END 2025-07-09 23:16 | disposition home or self-care (01) ==
PROVIDERS: Emergency Provider Emergency Medicine; Referring Provider Internal Medicine
DX: S63.92XA Sprain of unspecified part of left wrist and hand, initial encounter (principal); F17.210 Nicotine dependence, cigarettes, uncomplicated; W23.2XXA Caught, crushed, jammed or pinched between a moving and stationary object, initial encounter
CPT/HCPCS: 73130; 99283; A9270